=== PATIENT | female | born 1955 | race Caucasian/White ===

== ENCOUNTER → 2018-02-28 | Outpatient (CLI) | payer MEDICAID ==
[~2018-02-28] MED LIST: APAP500 PO; CIPRO500 MG PO; IBUPROFEN 800800 M1 PO; NORCO 5-325 TA1 EACH PO; ONDANSETRON HCL4 M2 PO; ULTRAM 50MG TAB50 MG PO
== END ==
LOC: M.NUC 07:12
DX: K31.84 Gastroparesis (principal); R11.2 Nausea with vomiting, unspecified; R68.81 Early satiety

== ENCOUNTER 2018-07-28 14:22 | Inpatient (IN) | payer OTHER, MEDICAID ==
[~2018-07-28] VITALS: Ht 157.5 cm; Wt 120.2 kg
[2018-07-28 14:26] VITALS: BP 104/57
[2018-07-28 14:45] LABS: ABSOLUTE BASOPHILS 0.1 thou/uL (0.0-0.2); ABSOLUTE EOSINOPHILS 0.1 thou/uL (0.0-0.7); ABSOLUTE LYMPHOCYTES 1.6 thou/uL (0.8-5.3); ABSOLUTE MONOCYTES 0.5 thou/uL (0.0-1.2); ABSOLUTE NEUTROPHILS 5.5 thou/uL (1.6-8.1); BASOPHILS 1.1 %; HEMATOCRIT 31.6 % (37.0-47.0); HEMOGLOBIN 10.5 gm/dL (12.0-15.0); LYMPHOCYTES 20.3 %; MCH 30.2 pg (26.0-34.0); MCHC 33.1 g/dL (28.0-37.0); MCV 91.3 fL (80.0-100.0); MONOCYTES 6.1 %; MPV 8.7 fl. (7.2-11.1); NUCLEATED RBCS 0 /100WBC; PLATELET COUNT* 188 thou/uL (150-400); POLYS 71.5 %; RBC 3.47 mil/uL (4.20-5.00); RDW-CV 15.4 % (10.5-14.5); WBC 7.7 thou/uL (4.0-11.0)
[2018-07-28 14:56] LABS: ANION GAP 8 mmol/L (7-16); BUN 48 mg/dL (7-18); CALCIUM 8.3 mg/dL (8.5-10.1); CHLORIDE 103 mmol/L (98-107); CO2 28 mmol/L (21-32); CREATININE 1.9 mg/dL (0.6-1.3); GLUCOSE 257 mg/dL (70-99); POTASSIUM 4.2 mmol/L (3.5-5.1); SODIUM 139 mmol/L (136-145)
[2018-07-28 14:58] LABS: APTT 34.6 Seconds (25.0-31.3); INR 1.2
[2018-07-28] MEDS ORDERED: DEMADEX20 MG PO (15:02)
[2018-07-28] MEDS ORDERED: PLAVIX 75 MG TA75 M1 PO (15:02)
[2018-07-28] MEDS ORDERED: PACERONE 200 M200 M1 PO (15:02)
[2018-07-28] MEDS ORDERED: NEURONTIN 300300 M1 PO (15:03)
[2018-07-28] MEDS ORDERED: XARELTO15 MG PO (15:03)
[2018-07-28] MEDS ORDERED: PROTONIX40 M1 PO (15:03)
[2018-07-28] MEDS ORDERED: LOPRESSOR25 PO (15:03)
[2018-07-28 15:04] LABS: ALBUMIN 2.9 g/dL (3.4-5.0); ALKALINE PHOSPHATASE 89 U/L (46-116); LIPASE 281 U/L (73-393); SGOT 24 U/L (15-37); SGPT 17 U/L (30-65); TOTAL BILIRUBIN 0.6 mg/dL (<0.1-1.0); TOTAL PROTEIN 6.9 g/dL (6.4-8.2); TROPONIN-I LEVEL <0.06 ng/mL (<0.06)
[2018-07-28] MEDS ORDERED: BENTYL 10 MG CA10 M1 PO (15:05)
[2018-07-28] MEDS ORDERED: JANUVIA 50 MG T50 M1 PO (15:05)
[2018-07-28] MEDS ORDERED: LIPITOR80 MG PO (15:05)
[2018-07-28] MEDS ORDERED: LEVEMIR SUBQ (15:06)
[2018-07-28] MEDS ORDERED: ZOLOFT25 MG PO (15:06)
[2018-07-28] MEDS ORDERED: CURCUMIN1 GM MC (15:07)
[2018-07-28 15:25] LABS: NT-PRO BRAIN NAT PEPTIDE 9481 pg/mL (<300)
[2018-07-28 18:09] VITALS: BP 101/61
[2018-07-28 18:26] VITALS: BP 92/66
--- NOTE | 2018-07-28 18:58 | NUR ---
PT ADMITTED TO ICU. VSS. AFEBRILE. RADIAL PULSES DOPPLERED. PT UP STAND BY. AT BEDSIDE. ADMISSION ASSESSMENT COMPLETED.
[2018-07-28 19:00] VITALS: BP 109/62
[2018-07-28] MEDS ORDERED: COLACE100 MG PO (20:12)
[2018-07-28 21:00] VITALS: BP 108/60
[2018-07-28 23:00] VITALS: BP 93/56
--- NOTE | 2018-07-28 23:40 | NUR ---
PT ALERT, AWAKE, AND CONVERSATIVE, REQUESTING DIET CHANGE, TOLERATING CLEAR LIQUIDS, CONSUMED X2 CUPS CHICKEN BROTH, X1 CUP SWEDISH ICE, X1 JELLO, AND X1 CAN LEMON UGASHIK SODA, CLARIFIED HOME MEDICATION LIST WITH PT, REQUESTING GABAPENTIN 300MG AND LEVIMIR 20UNITS HS PER HOME MEDICATION LIST. C/O CP 6/10 MIDSTERNAL SQUEEZING, STATES IMPROVED SINCE ADMISSION, NOTHING AGREVATES OR ALLEVIATING PAIN PER PT, CALLED DR KO, UPDATED PTS REQUEST FOR PAIN MEDICATION, HOME INSULIN, HOME DOSE GABAPENTIN FOR NUMBNESS/TINGLING BILAT HANDS AND FEET WITH HISTORY NEUROPATHY, C/O PAIN, AND PT REQUEST FOR DIET CHANGE, NEW ORDERS RECEIVED FOR GABAPENTIN 300MG PO TID PER HOME DOSE, LEVIMIR 20UNITS BID PER HOME DOSE, LOW DOSE LISPRO SLIDING SCALE AC/HS, TRAMADOL PRN PER HOME DOSE, CHANGE TO CONSISTANT CARB DIET, HYDROCODONE 5/325MG PO 1-2 Q4 HOURS PRN FOR PAIN, COMMUNICATED ORDERS WITH PATIENT, PROVIDED BOX LUNCH PER PT REQUEST WITH 100 PERCENT CONSUMPTION. HYDROCODONE 5/325MG PO 2 TABS GIVEN FOR PAIN CONTROL. WILL CONTINUE TO MONITOR.
[2018-07-29] VITALS: BP 110/67
[2018-07-29 02:00] VITALS: BP 117/67
--- NOTE | 2018-07-29 02:40 | NUR ---
PT C/O NAUSEA, ZOFRAN 4MG IVP [id number] PRN ORDERED. WILL COMMUNICATE ORDER WITH PT, INITATE ORDERED, AND CONTINUE MONITOR.
[2018-07-29 03:00] VITALS: BP 122/85
--- NOTE | 2018-07-29 03:58 | NUR ---
SPOKE DR KO VIA TELEPHONE, UPDATED PT STATUS, NEW ORDERS RECEIVED CHANGE PT FROM ICU TO TELE STATUS. WILL COMMUNICATE ORDER WITH PT.
[2018-07-29 04:00] VITALS: BP 106/67
[2018-07-29 06:00] VITALS: BP 103/55
[2018-07-29 06:52] LABS: HEMATOCRIT 33.3 % (37.0-47.0); HEMOGLOBIN 10.5 gm/dL (12.0-15.0); MCH 29.4 pg (26.0-34.0); MCHC 31.6 g/dL (28.0-37.0); MCV 93.1 fL (80.0-100.0); MPV 8.5 fl. (7.2-11.1); RBC 3.58 mil/uL (4.20-5.00); RDW-CV 15.8 % (10.5-14.5); WBC 9.8 thou/uL (4.0-11.0)
--- NOTE | 2018-07-29 07:02 | NUR ---
PROGRESSING TOWARDS GOALS, RESTING QUIETLY WITH EYES CLOSED MOST OF NOC, EASILY AROUSABLE TO VERBAL STIMULI, TOLERATING CONSISTANT CARB DIET, HYDROCODONE 5/325MG 2 TABS X1 GIVEN FOR MIDSTERNAL CP 5/10 PT REPORTS EFFECTIVE FOR PAIN MANAGEMENT, DENIES PAIN OR DISCOMFORT THIS AM. NAUSEA WITH 50CC CLEAR EMESIS X1, ZOFRAN 4MG IVP GIVEN X1 FOR NAUSEA WITH EFFECTIVE RESULTS, OXYGEN 3L PER NC, SOA WITH EXERTIONAL ACTIVITY RESOLVES WITH REST. UP TO BSC TO VOID X1 450CC JOSE CLEAR URINE. AWAKE, ALERT, CONVERSATIVE THIS AM. ASKING WHEN BREAKFAST WILL ARRIVE. B/P STABLE. USING CALL LIGHT FOR NEEDS, WANTS, AND OOB. CALL LIGHT REMAINS IN REACH.
[2018-07-29 07:19] LABS: ALBUMIN 3.1 g/dL (3.4-5.0); CALCIUM 8.5 mg/dL (8.5-10.1); CREATININE 2.1 mg/dL (0.6-1.3); MAGNESIUM 2.4 mg/dL (1.8-2.4); POTASSIUM 4.8 mmol/L (3.5-5.1); TOTAL BILIRUBIN 0.5 mg/dL (<0.1-1.0); TOTAL PROTEIN 7.2 g/dL (6.4-8.2)
[2018-07-29 08:18] LABS: CHOLESTEROL 113 mg/dL (<200); HDL CHOLESTEROL 31 mg/dL (>40); LDL CHOLESTEROL 57 mg/dL (<100); TC:HDL 3.6 Ratio (Not establshd); TRIGLYCERIDE 126 mg/dL (<150); VLDL 25 mg/dL (<40)
[2018-07-29 08:20] LABS: SERUM ASSESSMENT Clear
--- NOTE | 2018-07-29 09:51 | NUR ---
PATIENT NAUSEATED AT THIS TIME, WILL HOLD MEDS UNTIL ABLE TO TOLERATE MEDICATIONS. GETTING ECHO AT THIS TIME.
--- NOTE | 2018-07-29 11:05 | NUR ---
SPOKE WITH AT BEDSIDE, PT WAS SLEEPING. SAID PT DOES FAIR AT HOME, SHE IS ABLE TO BATHE AND DRESS HERSELF, GETS SHORT OF BREATH WITH LIMITED ACTIVITY 'SHE HAS A LEAKY HEART VALVE.' DOES THE COOKING, CLEANING, SHOPPING, ETC. PLANS ON PT RETURNING HOME AT DISCHARGE. DISCUSSED ROLE OF CASE MGT, WILL CONTINUE TO FOLLOW.
[2018-07-29 12:00] VITALS: BP 110/55
--- NOTE | 2018-07-29 16:01 | 2DMMODE ---
[place] [address] 2 D/M-MODE ECHOCARDIOGRAM Name: JHOANLITO J Room: [address] ADM IN [facility]#: [id number] Admission: 07/28/18 Attend Phys: Sheryl Montaño Discharge: Date of : 57 Date of Service: 07/29/18 1601 Report #: [id number] THIS REPORT FOR: //name// APPROVED REPORT Study performed: 07/29/2018 09:45:33 EXAM: Comprehensive 2D, Doppler, and color-flow Echocardiogram Patient Location: In-Patient Room #: 002 Status: routine BSA: 2.11 HR: 65 bpm BP: 106/56 mmHg Rhythm: NSR Other Information Study Quality: Good Indications Atrial Fibrillation Chest Pain 2D Dimensions IVSd: 12.61 (7-11mm) LVOT Diam: 19.67 (18-24mm) LVDd: 58.40 mm PWd: 12.54 (7-11mm) Ascending Ao: 26.84 (22-36mm) LVDs: 34.25 (25-40mm) Aortic Root: 27.97 mm Volumes Left Atrial Volume (Systole) LA ESV Index: 67.30 mL/m2 Aortic Valve AoV Peak Sang.: 2.09 m/s AO Peak Gr.: 17.47 mmHg LVOT Max P.54 mmHg AO Mean Gr.: 10.20 mmHg LVOT Mean P.74 mmHg LVOT Max V: 0.62 m/s AO V2 VTI: 44.56 cm LVOT Mean V: 0.40 m/s CHAIM (VTI): 0.90 cm2 LVOT V1 VTI: 13.20 cm Mitral Valve MV Mean Gr.: 4.56 mmHg MV Decel. Time: 258.44 [place] [address] 2 D/M-MODE ECHOCARDIOGRAM Name: LITO STAPLES Room: [address] IN .R.#: [id number] Admission: 07/28/18 Attend Phys: Sheryl Montaño Discharge: Date of : 57 Date of Service: 07/29/18 1601 Report #: [id number] MV PHT: 74.95 ms MVA (PHT): 2.94 cm2 TDI Medial E' Sang.: 0.09 m/s Lateral E' Sang.: 0.10 m/s Left Ventricle The left ventricle is normal size. There is normal LV segmental wall motion. Mild concentric left ventricular hypertrophy. Left ventricular systolic function is normal. LVEF is 55-60%. Transmitral Doppler flow pattern suggests restrictive physiology. Right Ventricle The right ventricle is normal size. The right ventricular systolic function is normal. Atria Left atrium is moderately dilated. Right atrium is mildly dilated. Aortic Valve Aortic valvular sclerosis. Valve motion poorly visualized. Trace aortic regurgitation. Possible mild aortic stenosis. Mitral Valve Significant mitral annular calcium patient noted. Mitral valve leaflets restricted in motion. At least mild to moderate mitral insufficiency. Jet poorly defined. No evidence of mitral valve stenosis. Tricuspid Valve The tricuspid valve is normal in structure. Trace tricuspid regurgitation. Unable to assess PA pressure. Pulmonic Valve The pulmonary valve is normal in structure. There is no pulmonic valvular regurgitation. Great Vessels The aortic root is normal in size. IVC is normal in size and collapses >50% with inspiration. Pericardium There is [place] [address] 2 D/M-MODE ECHOCARDIOGRAM Name: LITO STAPLES Room: [address] IN [facility].#: [id number] Admission: 07/28/18 Attend Phys: Sheryl Montaño Discharge: Date of : 57 Date of Service: 07/29/18 1601 Report #: [id number] <Conclusion> The left ventricle is normal size. Mild concentric left ventricular hypertrophy. Left ventricular systolic function is normal. LVEF is 55-60%. Transmitral Doppler flow pattern suggests restrictive physiology. Left atrium is moderately dilated. Right atrium is mildly dilated. Aortic valvular sclerosis. Valve motion poorly visualized. Possible mild aortic stenosis. Significant mitral annular calcium patient noted. Mitral valve leaflets restricted in motion. At least mild to moderate mitral insufficiency. Jet poorly defined. IVC is normal in size and collapses >50% with inspiration. Poor quality echo. Recommend transesophageal echo for further characterization of mitral and aortic valves. <ELECTRONICALLY SIGNED> By: Chon Btaista MD, FACC 07/29/18 1601 1601 1601 Chon Batista MD, FACC /INF
--- NOTE | 2018-07-29 16:51 | EKG ---
[place] [address] ELECTROCARDIOGRAM REPORT Name: LITO STAPLES Room: [address] ADM IN M.R.#: [id number] Admission: 07/28/18 Attend Phys: Prabha Espinosa Discharge: Date of : 57 Report #: [id number] THIS REPORT FOR: //name// [facility] ED Test Date: 2018-07-28 Test Time: 14:25:49 Pat Name: LITO STAPLES Department: Room: [facility] Gender: F Subcontract Administrator: VALERIE : 1955 Requested By: Zaira Mariano Order Number: [id number] MD: Chon Batista Measurements Intervals [place] Rate: 66 P: 78 LA: 162 QRS: 67 QRSD: 97 T: 162 QT: 443 QTc: 465 Interpretive Statements Sinus rhythm Repol abnrm suggests ischemia, anterolateral Compared to ECG 01/29/2017 11:21:02 Possible ischemia now present Short LA interval no longer present Prolonged QT interval no longer present Electronically Signed On 07-29-2018 16:50:51 CLINICAL PHARMACY TECHNICIAN by Chon Batista [email or web address] <ELECTRONICALLY SIGNED> By: Chon Batista MD, FAC 07/29/18 1650 1425 1425 Chon Batista MD, [facility] /EPI
[2018-07-29 19:09] LABS: GLYCOHEMOGLOBIN (HGB A1C) 8.2 % (4.8-5.6)
--- NOTE | 2018-07-29 19:42 | NUR ---
PT. TRANSFERED TO ROOM 222. PT A/OX4, VSS, MONITOR PLACED TRACING SR. ASSESSMENT COMPLETED WITH NO NOTED CHANGES. PT. C/O OF NAUSEA X 1 AFTER WALKING TO BATHROOM (SLOW, ASSIST X1). PO MED GIVEN WITH RELIEF. PT. ATE APPROX. 40% OF DINNER. HOURLY ROUNDING COMPLETED THROUGH OUT THE DAY FOR PT. SAFETY.
[2018-07-30] VITALS (11 sets, daily range): BP systolic 94–119; BP diastolic 47–69
--- NOTE | 2018-07-30 05:26 | NUR ---
VITALS WNL. SEE MAR. SEE CHARTING. FALL PRECAUTIONS IN PLACE. HOURLY ROUNDING FOR SAFETY.
--- NOTE | 2018-07-30 07:20 | NUR ---
CHANGE OF SHIFT BEDSIDE REPORT GIVEN PATIENT SEEN AT BEDSIDE, IN BED ASLEEP ASSUMED PATIENT CARE
[2018-07-30 10:52] LABS: CALCIUM 8.8 mg/dL (8.5-10.1); CREATININE 1.9 mg/dL (0.6-1.3); POTASSIUM 4.6 mmol/L (3.5-5.1)
[2018-07-30 10:54] LABS: INR 1.2; PROTIME 12.2 Seconds (9.20-11.50)
[2018-07-31] VITALS (12 sets, daily range): BP systolic 92–127; BP diastolic 41–76
[2018-07-31 05:07] LABS: HEMATOCRIT 27.4 % (37.0-47.0); HEMOGLOBIN 8.9 gm/dL (12.0-15.0); MCH 29.9 pg (26.0-34.0); MCHC 32.5 g/dL (28.0-37.0); MCV 91.9 fL (80.0-100.0); MPV 7.9 fl. (7.2-11.1); RBC 2.98 mil/uL (4.20-5.00); RDW-CV 15.4 % (10.5-14.5); WBC 7.4 thou/uL (4.0-11.0)
--- NOTE | 2018-07-31 05:08 | NUR ---
ASSUMED PT CARE AT 1930. ASSESSMENT COMPLETED CHARTED. C/O PAIN IN BACK, LEGS AND HEAD AND GAVE PRN TYLENOL THAT SEEMED TO HELP SOME. PT RESTING IN BED AT THIS TIME, TURNING SELF, RIGHT GROIN INSERTION SITE FOR STENT YESTERDAY HAS SOME BLOOD ON THE GAUZE BUT HAS NOT GOTTEN ANY WORSE AND NO HEMATOMA FORMED. ABLE TO MAKE NEEDS KNOWN. WILL CONTINUE TO MONITOR.
[2018-07-31 05:26] LABS: ALBUMIN 2.8 g/dL (3.4-5.0); CALCIUM 8.6 mg/dL (8.5-10.1); CREATININE 2.1 mg/dL (0.6-1.3); MAGNESIUM 2.3 mg/dL (1.8-2.4); TOTAL BILIRUBIN 0.6 mg/dL (<0.1-1.0); TOTAL PROTEIN 6.4 g/dL (6.4-8.2); TROPONIN-I LEVEL 0.1 ng/mL (<0.06)
--- NOTE | 2018-07-31 07:15 | NUR ---
CHANGE OF SHIFT BEDSIDE REPORT GIVEN PATIENT SEEN AT BEDSIDE, IN BED RESTING ASSUMED PATIENT CARE
--- NOTE | 2018-07-31 11:42 | CARD ---
[address] [address] CARDIAC CATH REPORT Name: ROBBY STAPLESUMBERTO Espinosa Room: [address] IN .R.#: [id number] Admission: 07/28/18 Attend Phys: Prabha Espinosa Discharge: Date of : 57 Report #: [id number] THIS REPORT FOR: //name// APPROVED REPORT Study performed: 07/30/2018 14:44:21 Patient Details Patient Status: In-Patient Room #: 222 The patient is a 62 year-old female Event Personnel Doug Soliz Scholarship Counselor, Gloria Duran RN Peritoneal Dialysis Registered Nurse, Muna Calabrese RTR Monitor, Dallas Wise, Aidan Machado Monitor Procedures Performed Art Access - R femoral artery* FLORINDA Place w/wo Plasty Single CIRC Hemostasis w/ Angioseal Indication Unstable angina Risk Factors Hypercholesterolemia, Hypertension Previous Procedures/Diagnoses Previous CABGPrevious PCI Admission/Lab Medications/Medications given during procedure Aspirin, Platelet Aff. Inhib., Angiomax bolus and infusion Procedure Narrative The patient was brought electively to the Cardiac Catheterization Laboratory and was prepped and draped in a sterile manner. The right femoral was infiltrated with 2% Lidocaine subcutaneous anesthesia. A Fowler 6 FR sheath was inserted into the right femoral artery. Coronary angiography was performed using coronary diagnostic catheters. The right coronary system was accessed and visualized with a Diagnostic 6Fr AR MOD catheter. The left coronary system was accessed and visualized with a Diagnostic 6Fr JL4 catheter. The left ventricle was accessed and visualized with a Diagnostic 6Fr straight pigtail catheter. Left ventricular/Aortic Valve gradient assessed via catheter pullback. Pre-demployment femoral angiogram was performed . Closure device was deployed with a 6 Fr Angioseal STS 6[place] [address] CARDIAC CATH REPORT Name: JHOANLITO J Room: [address] IN [facility].#: [id number] Admission: 07/28/18 Attend Phys: Prabha Espinosa Discharge: Date of : 57 Report #: [id number] was obtained with manual pressure following sheath removal without any complications. The patient tolerated the procedure well and there were no complications associated with the procedure. There was no hematoma. Intraoperative Conscious Sedation No Sedation was given. Fluoro Time: 13.0 minutes Dose: DAP [id number] cGycm2 97.8 mGy Contrast Type and Amount: Visipaque 170 ml Coronary Angiography The patient's coronary anatomy is left dominant. Diagnostic Cath Left Main 0% narrowing LAD 50 Percent tubular proximal LAD stenosis with 90% tubular mid LAD stenosis and reciprocal flow distally reflecting a patent SAEZ graft Circumflex 90% eccentric heavily calcified proximal circumflex stenosis Right Coronary [place]est size vessel with 90% proximal narrowing Left Ventriculography Left Ventriculography was not performed. Hemodynamics The aortic pressure is 110/54 mmHg with a mean of 74 mmHg. The left ventricular pressure is 116/13 mmHg with a mean of mmHg. The left ventricular end diastolic pressure is 28 mmHg. There was no gradient across the aortic valve upon pullback. Pullback from the left ventricle to the aorta revealed no gradient across the aortic valve. PCI Technique Lesion Anticoagulation was achieved with Angiomax. Percutaneous coronary intervention was performed on the proximal circumflex artery segment. The lesion stenosis prior to intervention was 90% with TALYA 3 flow. A 6F XB LAD 3.5 Guide Catheter was used to engage the ostium. A ProwaterFlex 180CM Interventional Guidewire was used to cross the lesion. BALLOON DILATION A Balloon catheter Mini Trek RX 1.20X12 was inserted and inflated up to 14.00atm for 8seconds. Additional Inflation: 16.00at[place] [address] CARDIAC CATH REPORT Name: LITO STAPLES Room: [address]#: [id number] Admission: 07/28/18 Attend Phys: Prabha Espinosa Discharge: Date of : 57 Report #: [id number] 9seconds. STENT DEPLOYMENT A drug-eluting stent Santiago RX Stent 2.5X15mm was inserted and inflated up to 15atm for 15seconds. Final angiography reveals 10 % stenosis with TALYA 3 flow. COMMENTS The proximal circumflex a segment was heavily calcified requiring complex wiring and extensive lesion preparation BALLOON DILATION A Balloon catheter was inserted and inflated up to 16.00atm for 9seconds. Additional Inflation: 16.00atm for 9seconds. STENT DEPLOYMENT A drug-eluting stent Soledad RX Stent 2.5X15mm was inserted and inflated up to 12.00atm for 8seconds. Additional Inflation: 15.00atm for 9seconds. PCI Technique Lesion Percutaneous coronary intervention was performed on the proximal circumflex artery segment. BALLOON DILATION A Balloon catheter NC Trek RX 2.75 X 12 was inserted and inflated up to 16.00atm for 8seconds. Additional Inflation: 16.00atm for 9seconds. Conclusion #1 significant coronary arteries characterized by the following: A 50% tubular proximal LAD stenosis with 90% tubular calcified mid LAD stenosis and reciprocal flow in the LAD beyond reflecting a patent SAEZ graft B 90% calcified stenosis of the proximal portion of the dominant circumflex C 90% narrowing of proximal portion of the small right coronary artery #2 single patent graft with a widely patent SAEZ graft [place] [address] CARDIAC CATH REPORT Name: LITO STAPLES Room: [address] IN .R.#: [id number] Admission: 07/28/18 Attend Phys: Prabha Espinosa Discharge: Date of : 57 Report #: [id number] #3 moderately severe elevation of left ventricular end-diastolic pressure at rest #4 successful percutaneous coronary intervention with deployment of drug-eluting stent at site of 90% calcified proximal circumflex stenosis with 10% residual narrowing and TALYA-3 flow the distal vessel. Recommendations Cardiac Risk Reduction Program Aggressive Medical Therapy Medications Administered Aspirin (any) Clopidogrel Diagnostic Cath Approved by: Doug Soliz MD Date/Time: 07/31/2018 11:41:12 <ELECTRONICALLY SIGNED> By: Doug Soliz MD, [facility] 07/31/18 1142 1142 [email or web address] Soliz MD, [facility] /INF
--- NOTE | 2018-07-31 16:31 | EKG ---
[place] [address] ELECTROCARDIOGRAM REPORT Name: ROBBY STAPLESUMBERTO Espinosa Room: [address] ADM IN M.R.#: [id number] Admission: 07/28/18 Attend Phys: Prabha Espinosa Discharge: Date of : 57 Report #: [id number] THIS REPORT FOR: //name// [facility] Test Date: 2018-07-30 Test Time: 14:25:15 Pat Name: LITO STAPLES Department: Room: [address] Gender: F Cigar Roller: : 1955 Requested By: Dallas Braswell Order Number: [id number] Martha MD: Doug Soliz Measurements Intervals [place] Rate: 64 P: 60 RI: 167 QRS: 59 QRSD: 90 T: 64 QT: 476 QTc: 491 Interpretive Statements Sinus rhythm Borderline low voltage, extremity leads Abnormal T, consider ischemia, anterior leads Compared to ECG 07/28/2018 14:25:49 T-wave abnormality now present Early repolarization no longer present Possible ischemia still present Electronically Signed On 07-31-2018 16:31:10 TRADING ANALYST by Doug Soliz [email or web address] <ELECTRONICALLY SIGNED> By: Doug Soliz MD, [facility] 07/31/18 1631 1425 1425 Doug Soliz MD, [facility] /EPI
--- NOTE | 2018-07-31 16:33 | EKG ---
[place] [address] ELECTROCARDIOGRAM REPORT Name: LITO TSAPLES Room: [address] ADM IN M.R.#: [id number] Admission: 07/28/18 Attend Phys: Prabha Espinosa Discharge: Date of : 57 Report #: [id number] THIS REPORT FOR: //name// [facility] Test Date: 2018-07-30 Test Time: 17:11:14 Pat Name: LITO STAPLES Department: Room: [address] Gender: F Medical Superintendent: : 1955 Requested By: Doug Soliz Order Number: [id number] Martha MD: Doug Soliz Measurements Intervals [place] Rate: 69 P: 64 [place]: 165 QRS: 78 QRSD: 96 T: 179 QT: 411 QTc: 441 Interpretive Statements Sinus rhythm Probable left atrial enlargement Borderline low voltage, extremity leads Abnrm T, consider ischemia, anterolateral lds Compared to ECG 07/28/2018 14:25:49 Early repolarization no longer present Possible ischemia still present Electronically Signed On 07-31-2018 16:33:33 COMPUTER PROCESSING SCHEDULER by Doug Soliz [email or web address] <ELECTRONICALLY SIGNED> By: Doug Soliz MD, FAC 07/31/18 1633 1711 1711 Doug Soliz MD, [facility] /EPI
--- NOTE | 2018-07-31 16:39 | EKG ---
[place] [address] ELECTROCARDIOGRAM REPORT Name: LITO STAPLES Room: [address] ADM IN M.R.#: [id number] Admission: 07/28/18 Attend Phys: Prabha Espinosa Discharge: Date of : 57 Report #: [id number] THIS REPORT FOR: //name// [facility] Test Date: 2018-07-31 Test Time: 03:54:00 Pat Name: LITO STAPLES Department: Room: [address] Gender: F Circus Roustabout: AUSTYN : 1955 Requested By: Doug Soliz Order Number: [id number] Martha MD: Doug Soliz Measurements Intervals [place] Rate: 67 P: 66 AL: 159 QRS: 71 QRSD: 98 T: 107 QT: 462 QTc: 488 Interpretive Statements Sinus rhythm Borderline low voltage, extremity leads Abnormal R-wave progression, early transition Nonspecific T abnrm, anterolateral leads Borderline prolonged QT interval Compared to ECG 07/28/2018 14:25:49 Early repolarization no longer present Possible ischemia no longer present Electronically Signed On 07-31-2018 16:38:59 EMOTIONALLY IMPAIRED TEACHER by Doug Soliz [email or web address] <ELECTRONICALLY SIGNED> By: Doug Soliz MD, [facility] 07/31/18 1638 0354 0354 Doug Soliz MD, [facility] /EPI
--- NOTE | 2018-07-31 17:54 | TEE ---
[place] [address] TRANSESOPHAGEAL ECHOCARDIOGRAM Name: ROBBY STAPLESUMBERTO Espinosa Room: [address] IN [facility]#: [id number] Admission: 07/28/18 Attend Phys: Sheryl Montaño Discharge: Date of : 57 Date of Service: 07/31/18 1753 Report #: [id number] THIS REPORT FOR: //name// APPROVED REPORT Study performed: 07/31/2018 16:56:37 EXAM: Transesophageal Echocardiogram Patient Location: In-Patient Room #: [facility] Status: routine BSA: 2.13 HR: 70 bpm BP: 81/54 mmHg Rhythm: NSR Other Information Study Quality: Good Indications Mitral Valve Disease Echo Enhancing Agent Indication: Rule out Shunt Agent(s) / Amount(s) Used: Agitated Saline 10 cc Mitral Valve MV Mean Gr.: 5.83 mmHg Procedure After obtaining informed consent, patient underwent transesophageal echo in the [facility] [employer]. Type of Sedation : Conscious Sedation Sedation start time: 1719 Case end Time: 1734 Sedation was achieved intravenously with: Versed (2) Fentanyl (50) Transesophageal probe was inserted and advanced into esophagus without difficulty by Chon Batista MD, FACC. Echo enhancement indication: R/O Septal defect. Echo enhancement agent administered: Agitated Saline The MYNOR was performed without complications. Throughout the procedure, the blood pressure, pulse oximetry, cardiac rhythm, and rate were monitored. The patient tolerated the procedure without adverse effects. Recovery from conscious sedation was uneventful and vital signs were [facility] [address] [place] [address] TRANSESOPHAGEAL ECHOCARDIOGRAM Name: LITO STAPLES Room: [address] IN [facility].#: [id number] Admission: 07/28/18 Attend Phys: Sheryl Montaño Discharge: Date of : 57 Date of Service: 07/31/18 1753 Report #: [id number] stable. Left Ventricle The left ventricle is normal size. There is normal LV segmental wall motion. Mild concentric left ventricular hypertrophy. Left ventricular systolic function is normal. LVEF is 55-60%. Right Ventricle The right ventricle is normal size. The right ventricular systolic function is normal. Atria Left atrium is moderately dilated. Atrial appendage surgically absent. Interatrial septum is intact without evidence of ASD or PFO. Right atrium is mildly dilated. Aortic Valve Mild aortic valve sclerosis. No aortic regurgitation is present. There is no aortic valvular stenosis. Mitral Valve Mild to Moderate mitral annular calcification. Severe mitral regurgitation. No evidence of mitral valve stenosis. Tricuspid Valve The tricuspid valve is normal in structure. There is no tricuspid valve regurgitation noted. Pulmonic Valve Pulmonic valve is not well visualized. There is no pulmonic valvular regurgitation. Great Vessels The aortic root is normal in size. Pericardium There is no pericardial effusion. <Conclusion> The left ventricle is normal size. Mild concentric left ventricular hypertrophy. Left ventricular systolic function is normal. LVEF is 55-60%. Interatrial septum is intact without evidence of ASD or PFO. Left atrium is moderately dilated. Atrial [place] [address] TRANSESOPHAGEAL ECHOCARDIOGRAM Name: LITO STAPLES Francisca Room: [address] IN [facility]#: [id number] Admission: 07/28/18 Attend Phys: Sheryl Montaño Discharge: Date of : 57 Date of Service: 07/31/181752 Report #: [id number] Right atrium is mildly dilated. Mild aortic valve sclerosis. Mild aortic valve sclerosis. There is no aortic valvular stenosis. Mild to Moderate mitral annular calcification. Severe mitral regurgitation. <ELECTRONICALLY SIGNED> By: Chon Batista MD, FACC 07/31/181752 52 52 Chon Batista MD, FACC /INF
[2018-08-01] VITALS (7 sets, daily range): BP systolic 90–125; BP diastolic 36–60
--- NOTE | 2018-08-01 04:09 | NUR ---
ASSUMED PT CARE AT 1930. ASSESSMENT COMPLETED CHARTED. PT HAS BEEN SLEEPY ALL SHIFT. C/O PAIN RECENTLY OF BODY ACHES AND GAVE PRN TYLENOL. WILL CONTINUE TO MONITOR.
--- NOTE | 2018-08-01 12:11 | NUR ---
PT A/O X'S 4. VSS. AFEBRILE. NO C/O PAIN. DURING METAL BONDING CRIB ATTENDANT PT REPORTED HAVING AN EPISODE OF FEELING SOA AND DIAPHORETIC. PT DENIES THESE SYMPTOMS AT THIS TIME. CARDIOLOGY NOTIFIED OF SYMPTOMS AT NIGHT AND REPORTED THEY ARE GOING TO MAKE MEDICATION CHANGED. PT DENIES SOA THIS SHIFT. PT C/O OF BEING COLD. MEDICATIONS ADMININSTERED PER SEP. WILL CONTINUE PLAN OF CARE.
[2018-08-01] MEDS ORDERED: ASPIR 8181 M1 PO (15:08)
--- NOTE | 2018-08-01 15:49 | NUR ---
CALLED CARDIOLOGY. PT TO GO HOME ON PLAVIX, ASPIRIN AND XARELTO.
--- NOTE | 2018-08-01 16:57 | NUR ---
TELEPHONE SERVICE ADVISER INFORMED THAT THE PATIENT WILL NEED HOME O2 AT D/C, BUT WILL NEED MEDICAID PRIOR AUTH. D/C [employer] SPOKE TO [place] MEDICAID PRIOR AUTH LINE TO INFORM OF NEED TO ACQUIRE AUTH. HOME OXYGEN PRIOR AUTH WAS APPROVED. D/C [employer] SPOKE TO JYOTHI WITH [employer] TO INFORM OF THE DME REFERRAL FOR HOME OXYGEN, AND FAXED THE PATIENT'S FACESHEET, H&P, AND DME ORDER. [facility] TO DELIVER OXYGEN TANK HERE TO THE HOSPITAL, AND TO DELIVER OXYGEN CONCENTRATOR AND SUPPLIES TO THE PATIENT'S HOME. PATIENT AND RN IN-CHARGE OF PATIENT INFORMED OF ALL OF THE ABOVE INFO. CM WILL REMAIN AVIALABLE TO ASSIST AND FOLLOW NEEDED.
--- NOTE | 2018-08-01 18:29 | NUR ---
RECEIVED DISCHARGE ORDERS. IV AND CARDIAC DC'D. OXYGEN DELIEVERED TO PT IN HOSPITAL. ALL BELONGINGS PACKED UP AND LEFT WITH PT.
== END 2018-08-01 18:15 | disposition home or self-care (01) | DRG 246 ==
LOC: M.ERS 14:22 → M.TBA-ER 17:07 → M.ICU 17:07 → M.2W 17:07 → M.ICU 18:27 → M.2W 07-29 16:01
PROVIDERS: Internal Medicine; Nurse Practitioner Family; Personal Emergency Response Attendant; ADMIT Internal Medicine
DX: I25.110 Atherosclerotic heart disease of native coronary artery with unstable angina pectoris (principal); J96.01 Acute respiratory failure with hypoxia; I50.33 Acute on chronic diastolic (congestive) heart failure; N18.4 Chronic kidney disease, stage 4 (severe); N17.9 Acute kidney failure, unspecified; Z68.42 Body mass index [BMI] 45.0-49.9, adult; I13.0 Hypertensive heart and chronic kidney disease with heart failure and stage 1 through stage 4 chronic kidney disease, or unspecified chronic kidney disease; Z88.6 Allergy status to analgesic agent; Z88.0 Allergy status to penicillin; I95.9 Hypotension, unspecified; I48.91 Unspecified atrial fibrillation; K21.9 Gastro-esophageal reflux disease without esophagitis; F32.9 Major depressive disorder, single episode, unspecified; E11.22 Type 2 diabetes mellitus with diabetic chronic kidney disease; E66.01 Morbid (severe) obesity due to excess calories; I34.0 Nonrheumatic mitral (valve) insufficiency; I25.5 Ischemic cardiomyopathy; I48.2 Chronic atrial fibrillation; Z95.5 Presence of coronary angioplasty implant and graft; Z90.49 Acquired absence of other specified parts of digestive tract; Z87.891 Personal history of nicotine dependence

== ENCOUNTER 2019-01-27 16:35 | Emergency (ER) | payer OTHER, MEDICAID ==
[~2019-01-27] VITALS: Ht 157.5 cm; Wt 101.2 kg
[~2019-01-27 16:35] MED LIST changes: +ASPIR 8181 M1 PO; +BENTYL 10 MG CA10 M1 PO; +COLACE100 MG PO; +CURCUMIN1 GM MC; +DEMADEX20 MG PO; +JANUVIA 50 MG T50 M1 PO; +LEVEMIR SUBQ; +LIPITOR80 MG PO; +LOPRESSOR25 PO; +NEURONTIN 300300 M1 PO; +PACERONE 200 M200 M1 PO; +PLAVIX 75 MG TA75 M1 PO; +PROTONIX40 M1 PO; +XARELTO15 MG PO; +ZOLOFT25 MG PO
[2019-01-27] MEDS ORDERED: NORCO 5-325 TA1 EAC1 PO (18:53)
[2019-01-27 19:00] VITALS: BP 118/72
== END 2019-01-27 19:00 | disposition home or self-care (01) ==
LOC: M.ERS 16:35
DX: S92.191A Other fracture of right talus, initial encounter for closed fracture (principal); S92.511A Displaced fracture of proximal phalanx of right lesser toe(s), initial encounter for closed fracture; K21.9 Gastro-esophageal reflux disease without esophagitis; I48.91 Unspecified atrial fibrillation; I25.10 Atherosclerotic heart disease of native coronary artery without angina pectoris; I12.9 Hypertensive chronic kidney disease with stage 1 through stage 4 chronic kidney disease, or unspecified chronic kidney disease; E11.22 Type 2 diabetes mellitus with diabetic chronic kidney disease; N18.4 Chronic kidney disease, stage 4 (severe); Z88.0 Allergy status to penicillin; Z88.5 Allergy status to narcotic agent; Z95.1 Presence of aortocoronary bypass graft; Z95.5 Presence of coronary angioplasty implant and graft; Z79.4 Long term (current) use of insulin; W01.0XXA Fall on same level from slipping, tripping and stumbling without subsequent striking against object, initial encounter; Y93.89 Activity, other specified; Y92.89 Other specified places as the place of occurrence of the external cause; Y99.8 Other external cause status

== ENCOUNTER 2019-03-11 15:12 | Emergency (ER) | payer OTHER, MEDICAID ==
[~2019-03-11] VITALS: Ht 160 cm; Wt 103.9 kg
[~2019-03-11 15:12] MED LIST changes: +NORCO 5-325 TA1 EAC1 PO
[2019-03-11] MEDS ORDERED: LANOXIN 0.25M0.25 M1 PO (15:23)
[2019-03-11] MEDS ORDERED: COUMADIN 4 MG TA4 M1 PO (15:24)
[2019-03-11 16:04] LABS: INR 3.2; PROTIME 31.2 Seconds (9.20-11.50)
[2019-03-11] MEDS ORDERED: NORCO 5-325 TA1 EAC1 PO (16:28)
[2019-03-11 16:41] VITALS: BP 124/65
== END 2019-03-11 16:42 | disposition home or self-care (01) ==
LOC: M.ERS 15:12
PROVIDERS: Physician Assistant
DX: S90.32XA Contusion of left foot, initial encounter (principal); I25.10 Atherosclerotic heart disease of native coronary artery without angina pectoris; K21.9 Gastro-esophageal reflux disease without esophagitis; I48.91 Unspecified atrial fibrillation; I12.9 Hypertensive chronic kidney disease with stage 1 through stage 4 chronic kidney disease, or unspecified chronic kidney disease; E11.22 Type 2 diabetes mellitus with diabetic chronic kidney disease; N18.4 Chronic kidney disease, stage 4 (severe); Z95.1 Presence of aortocoronary bypass graft; Z79.4 Long term (current) use of insulin; Z95.5 Presence of coronary angioplasty implant and graft; Z88.8 Allergy status to other drugs, medicaments and biological substances; W22.8XXA Striking against or struck by other objects, initial encounter; Y93.89 Activity, other specified; Y92.89 Other specified places as the place of occurrence of the external cause; Y99.8 Other external cause status

== ENCOUNTER 2019-03-31 18:24 | Inpatient (IN) | payer OTHER, MEDICAID ==
[~2019-03-31] VITALS: Ht 154.9 cm; Wt 111.1 kg
[~2019-03-31 18:24] MED LIST changes: -APAP500 PO; +COUMADIN 4 MG TA4 M1 PO; +LANOXIN 0.25M0.25 M1 PO; +TYLENOL EXTRA500 MG PO
[2019-03-31 18:29] VITALS: BP 114/64
[2019-03-31 19:09] LABS: ABSOLUTE BASOPHILS 0.1 thou/uL (0.0-0.2); ABSOLUTE EOSINOPHILS 0.1 thou/uL (0.0-0.7); ABSOLUTE LYMPHOCYTES 1.7 thou/uL (0.8-5.3); ABSOLUTE MONOCYTES 0.4 thou/uL (0.0-1.2); ABSOLUTE NEUTROPHILS 4.2 thou/uL (1.6-8.1); EOSINOPHILS 1.7 %; HEMATOCRIT 37.5 % (37.0-47.0); HEMOGLOBIN 12.3 gm/dL (12.0-15.0); LYMPHOCYTES 26.3 %; MCH 29.7 pg (26.0-34.0); MCHC 32.9 g/dL (28.0-37.0); MCV 90.5 fL (80.0-100.0); MONOCYTES 6.7 %; NUCLEATED RBCS 0 /100WBC; PLATELET COUNT* 196 thou/uL (150-400); POLYS 64.3 %; RBC 4.14 mil/uL (4.20-5.00); WBC 6.5 thou/uL (4.0-11.0)
[2019-03-31 19:20] LABS: INR 3.2; PROTIME 31.2 Seconds (9.20-11.50)
[2019-03-31 19:21] LABS: ANION GAP 13 mmol/L (7-16); BUN 33 mg/dL (7-18); CALCIUM 8.5 mg/dL (8.5-10.1); CHLORIDE 102 mmol/L (98-107); CO2 24 mmol/L (21-32); CREATININE 1.9 mg/dL (0.6-1.3); GLUCOSE 329 mg/dL (70-99); POTASSIUM 3.9 mmol/L (3.5-5.1); SODIUM 139 mmol/L (136-145)
[2019-03-31 19:27] LABS: ALBUMIN 3.4 g/dL (3.4-5.0); ALKALINE PHOSPHATASE 96 U/L (46-116); LIPASE 298 U/L (73-393); NT-PRO BRAIN NAT PEPTIDE 1433 pg/mL (<300); SGOT 31 U/L (15-37); SGPT 40 U/L (30-65); TOTAL BILIRUBIN 0.5 mg/dL (<0.1-1.0); TROPONIN-I LEVEL <0.06 ng/mL (<0.06)
[2019-03-31 22:11] VITALS: BP 117/61
[2019-03-31 22:20] VITALS: BP 120/67
[2019-03-31] MEDS ORDERED: BENADRYL25 MG PO (23:01)
[2019-03-31] MEDS ORDERED: VITAMIN D1000 UNI1 PO (23:02)
[2019-03-31] MEDS ORDERED: LAXATIVE DIETA500 MG PO (23:02)
[2019-03-31] MEDS ORDERED: DEMADEX20 MG PO (23:06)
[2019-04-01 04:00] VITALS: BP 113/48
[2019-04-01 11:26] VITALS: BP 120/56
[2019-04-01 15:30] VITALS: BP 121/51
[2019-04-01 20:00] VITALS: BP 147/60
[2019-04-02] VITALS: BP 113/41
[2019-04-02 04:00] VITALS: BP 145/52
[2019-04-02 04:41] LABS: ABSOLUTE BASOPHILS 0.1 thou/uL (0.0-0.2); ABSOLUTE EOSINOPHILS 0.2 thou/uL (0.0-0.7); ABSOLUTE MONOCYTES 0.5 thou/uL (0.0-1.2); ABSOLUTE NEUTROPHILS 4.6 thou/uL (1.6-8.1); BASOPHILS 0.9 %; EOSINOPHILS 2.2 %; HEMOGLOBIN 11.9 gm/dL (12.0-15.0); LYMPHOCYTES 27.8 %; MCH 29.4 pg (26.0-34.0); MCHC 32.1 g/dL (28.0-37.0); MCV 91.6 fL (80.0-100.0); MONOCYTES 6.8 %; MPV 8.4 fl. (7.2-11.1); NUCLEATED RBCS 0 /100WBC; PLATELET COUNT* 189 thou/uL (150-400); POLYS 62.3 %; RBC 4.03 mil/uL (4.20-5.00); RDW-CV 14.8 % (10.5-14.5); WBC 7.3 thou/uL (4.0-11.0)
[2019-04-02 04:54] LABS: CALCIUM 8.3 mg/dL (8.5-10.1); CREATININE 2.2 mg/dL (0.6-1.3); POTASSIUM 4.9 mmol/L (3.5-5.1)
[2019-04-02 05:07] LABS: INR 2.3; PROTIME 23.3 Seconds (9.20-11.50)
[2019-04-02 08:30] VITALS: BP 134/56
[2019-04-02 11:48] VITALS: BP 149/47
--- NOTE | 2019-04-02 12:41 | CON ---
[address] [address] CONSULTATION Name: PATTYANDRAELITO J Room: [place] [address] ADM IN M.R.#: [id number] Admission: 03/31/19 Attend Phys: Dallas Braswell MD Discharge: Date of : 57 Report #: [id number] THIS REPORT FOR: //name// CC: FAM unknown Dallas Braswell DATE OF SERVICE: 04/01/2019 HISTORY OF PRESENT ILLNESS: The patient is a very pleasant 63-year-old right-hand dominant female who is complaining, Orthopedics has seen her for her left upper extremity potential pain and discomfort. The patient was admitted through the institution on 03/31/2019, she was described as having some tightness in her chest, pain in the arm and has been given a good cardiac workup, still having not completed today. She recently had a mechanical valve placed at [facility], is on Coumadin therapy for that she tells me. The patient otherwise has never had this before, this just started yesterday. The patient denies any major numbness or tingling, but does get a little burning in the left arm at times. PAST MEDICAL HISTORY: She does have the past medical history of diabetes, hypertension, sciatica. She has had coronary artery disease. Of course, she has CKD 4, GERD, and AFib. PAST SURGICAL HISTORY: She does have history of CABG, mechanical aortic valve. She has cardiac stents placed in the history of 2016. She has had oophorectomy. She has had a cholecystectomy, myringotomies and multiple ankle surgeries. CURRENT MEDICATIONS: Hydrocodone for her pain. She is on Plavix, amiodarone, pantoprazole, atorvastatin, sertraline, tramadol, sitagliptin, which is Januvia. She is on acetaminophen, gabapentin, insulin, digoxin, warfarin. ALLERGIES: CODEINE AND PENICILLIN IS LISTED. FAMILY HISTORY: She does have no gross family history. SOCIAL HISTORY: She has no major alcohol or tobacco use history otherwise. REVIEW OF SYSTEMS: MUSCULOSKELETAL: Has had discomfort, it is improving in the left upper extremity per and herself and she does has a little burning in the left arm region. CONSTITUTIONAL: Otherwise, denies any fevers or chills. No eye pain. RESPIRATORY: She has no cough or congestion. Denies any shortness of breath. Currently, no current chest pain. ABDOMEN: [place] [address] CONSULTATION Name: LITO STAPLES Room: [address] IN [facility]#: [id number] Admission: 03/31/19 Attend Phys: Dallas Braswell MD Discharge: Date of : 57 Report #: [id number] PHYSICAL EXAMINATION: VITAL SIGNS: Overall vitals show BP is 114/64, pulse 53, respirations 20. GENERAL: The patient's clinical presentation, she is alert and cooperative, appropriate affect and judgment. HEENT: Normocephalic. Sclerae are white. Mucous membranes moist. Trachea is midline. She has O2 supplementation nasal cannula. Does demonstrate to be very conservative, has normal talk to me. She has no facial droops. She has no audible wheezes. EXTREMITIES: Demonstrate to show upper extremities ____. Full motion is noted to both shoulders, elbows and wrists. She has little soreness moving her left wrist region, but not the shoulder. The upper extremity shows soft compartments in the upper arm and the lower arm on both sides. The patient has good pulses at the wrists bilaterally. Her sensation is intact to the hand bilaterally. I see no erythema anywhere in the left arm which is the painful arm. IMAGING: Her radiograph of the left shoulder does demonstrate to show that she has some AC joint arthropathy if anything early osteoarthritis of glenohumeral joint. IMPRESSION: Left shoulder pain with underlying early acromioclavicular joint arthropathy, left arm pain, etiology undetermined, but could be a potential either cardiac history radiating to the left arm pain and/or remote chance of a deep venous thrombosis, although all compartments are totally soft in that. In any event, she has never had this before. I think this hopefully is improving. We will continue to do so, so Orthopedics will just be on standby, would not do anything else for her and I discussed that with them and they agree. It is my pleasure seeing and taking care of her today. <ELECTRONICALLY SIGNED> By: Kunal Carr DO 04/02/19 1241 1301 0211Cwilson Carr DO /nt
[2019-04-02 15:52] VITALS: BP 132/51
--- NOTE | 2019-04-02 17:27 | CARDNUC ---
[place] [address] CARDIAC NUCLEAR IMAGING REPORT Name: LITO STAPLES Room: [address] IN [facility]#: [id number] Admission: 03/31/19 Attend Phys: Dallas Braswell, Discharge: Date of : 57 Date of Service: 04/02/19 1726 Report #: [id number] THIS REPORT FOR: //name// APPROVED REPORT Study performed: 04/01/2019 13:47:23 Exam: Nuclear Stress Test Indication: Chest pain Patient Location: In-Patient Room #: 233 Stress Tech: Cathryn Moreno Stress Nurse: Dorothy Escalante RN NM Tech:TERESA Cerna Ht: 5 ft 0 in Wt: 236 lbs BSA: 2.00 m2 BMI: 46.08 Medical History Medical History: cad, hyperllipidemia, hypertension, diabetes Medications: amiodarone, digoxin, warfarin, torsemide, atorvastatin, clopidogrel Allergies: penicillin, codeine Cardiac Risk Factors: age, hyperlipidemia, hypertension, dibetes, family hx Previous Cardiac Procedures: cabg, pci, valve surgery Exercise History: Sedentary Stress Test Details Stress Test: Pharmacologic stress testing performed using 0.4 mg of regadenoson per 5 mL given IV over 10 seconds. Reason for pharmacologic stress test: physical limitation. HR Resting HR: 56 bpm Max Heart Rate (APMHR): 158 bpm Max HR Achieved: 66 bpm Target HR (85% APMHR): 134 bpm % of APMHR: 41 Recovery HR: 65 bpm HR response to stress: Normal HR response to stress BP Resting BP: 102/66 mmHg Max BP: 191/64 [place] [address] CARDIAC NUCLEAR IMAGING REPORT Name: LITO STAPLES Francisca Room: [address] IN [facility]#: [id number] Admission: 03/31/19 Attend Phys: Dallas Braswell, Discharge: Date of : 57 Date of Service: 04/02/19 1726 Report #: [id number] BP response to stress: Abnormal hypertensive response to stress. ECG Resting ECG: Sinus Rhythm, nonspecific ST-T abnormalities Stress ECG: Sinus Rhythm, nonspecific ST-T abnormalities ST Change: Downsloping ST depression Maximum ST Deviation: 0.5 mm Arrhythmia: None Recovery ECG: Sinus Rhythm, nonspecific ST-T abnormalities Recovery ST Change: None Recovery Arrhythmia: None Clinical Reason for Termination: Completed protocol Stress Symptoms: None Exercise duration: 0 min sec Exercise capacity: 1 METs Nurse Comments pt is extremely weak from multiple surgeries and illnesses. unable to stand unattended Stress ECG Conclusion Normal hemodynamic response to pharmacologic stress. Clinical: Non-ischemic Non-diagnostic ekg stress due to failure to attain target HR. NM EXAM: Myocardial Perfusion REST/STRESS Imaging Protocol: Stress Tc-99m/Rest Tc-99m 2 days Resting Data Rest SPECT myocardial perfusion imaging was performed in supine position 30 minutes following the intravenous injection of 34.0 mCi of Tc-99m Sestamibi. Time of rest injection: 09:45 Date: 04/02/2019 The images were gated to evaluate regional wall motion and calculate left ventricular ejection fraction. Administration Route: IV Administration Site: Right AC Pharmacologic Stress Pharmacologic stress test was performed by injecting Regadenoson 0.4 mg IV push followed by the intravenous injection of 30.2 mCi of Tc-99[place] [address] CARDIAC NUCLEAR IMAGING REPORT Name: LITO STAPLES Room: [address] IN [facility].#: [id number] Admission: 03/31/19 Attend Phys: Dallas Braswell, Discharge: Date of : 57 Date of Service: 04/02/19 1726 Report #: [id number] Time of stress injection: 13:50 Date: 04/01/2019 Administration Route: IV Administration Site: Right AC Heart Rate at time of stress injection: 66 bpm. Gated Stress SPECT was performed 40 minutes after stress injection. The images were gated to evaluate regional wall motion and calculate left ventricular ejection fraction. Study Quality Study: Good Artifact: Mild Diaphragmatic artifact Lung Uptake: Normal Study Data At rest, the left ventricular ejection fraction was 51%.. Post stress, the left ventricular ejection was 63%.. TID = 1.12. Perfusion The resting study demonstrated a small mild lateral defect as well as a small mild inferior defect. The post stress images demonstrated a moderate in size and moderate in severity lateral defect as well as a moderate in size moderate in severity inferior defect. Assess of bowel uptake was present. These images demonstrate a small moderate in severity lateral defect and a small moderate in severity inferior defect these reversible defects are compatible with myocardial ischemia. There appears to be at least a small moderate area of lateral ischemia and a small mild area of inferior ischemia. Images were reviewed using [employer]. Wall Motion Normal left ventricular wall motion. Nuclear Conclusion ECG Findings: non-diagnostic Clinical Findings: negative for ischemia Nuclear Findings: positive for ischemia Exercise Capacity: not assessed Left Ventricular Function: normal Risk Study: moderate The Lexiscan Cardiolite stress test demonstrates a small area of moderate lateral ischemia and a small area of mild inferior ischemia. Overall this is a moderate risk study. <Conclusion> [place] [address] CARDIAC NUCLEAR IMAGING REPORT Name: LITO STAPLES Room: [address] IN [facility].#: [id number] Admission: 03/31/19 Attend Phys: Dallas Braswell, Discharge: Date of : 57 Date of Service: 04/02/19 1726 Report #: [id number] Normal hemodynamic response to pharmacologic stress. Clinical: Non-ischemic Non-diagnostic ekg stress due to failure to attain target HR. <ELECTRONICALLY SIGNED> By: Roxanne Bowie MD, FACC 04/02/191725 25 25 Roxanne Bowie MD, FAC /INF
--- NOTE | 2019-04-02 17:53 | EKG ---
[place] [address] ELECTROCARDIOGRAM REPORT Name: LITO STAPLES Room: [place] [address] ADM IN .R.#: [id number] Admission: 03/31/19 Attend Phys: Dallas Braswell MD Discharge: Date of : 57 Report #: [id number] THIS REPORT FOR: //name// 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1955 Requested By: Nehemiah Luna Order Number: [id number] MD: Shahid Bowie Measurements Intervals [place] Rate: 55 P: 59 SD: 239 QRS: 36 QRSD: 94 T: 130 QT: 458 QTc: 438 Interpretive Statements Sinus rhythm Prolonged SD interval Repol abnrm suggests ischemia, anterolateral Minimal ST elevation, inferior leads Compared to ECG 07/31/2018 03:54:00 First degree AV block now present Early repolarization now present Possible ischemia now present ST (T wave) deviation now present Electronically Signed On 04-02-2019 17:52:51 CDT by Shahid Bowie [email or web address] <ELECTRONICALLY SIGNED> By: Roxanne Bowie MD, [facility] 04/02/191751 31 31 Roxanne Bowie MD, FAC /EPI
--- NOTE | 2019-04-02 17:54 | EKG ---
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: [place] : 1955 Requested By: Ruth Prescott Order Number: [id number] MD: Shahid Bowie Measurements Intervals [place] Rate: 58 P: 43 MT: 158 QRS: 48 QRSD: 89 T: 131 QT: 521 QTc: 512 Interpretive Statements Sinus rhythm Abnrm T, consider ischemia, anterolateral lds Prolonged QT interval Compared to ECG 07/31/2018 03:54:00 Possible ischemia now present Electronically Signed On 04-02-2019 17:53:54 CDT by Shahid Bowie [email or web address] <ELECTRONICALLY SIGNED> By: Roxanne Bowie MD, [facility] 04/02/19 1753 38 38 Roxanne Bowie MD, [facility] /EPI
[2019-04-02 20:00] VITALS: BP 136/47
[2019-04-03] VITALS: BP 124/40
[2019-04-03 04:56] LABS: INR 1.8; PROTIME 18.1 Seconds (9.20-11.50)
[2019-04-03 08:20] VITALS: BP 151/72
[2019-04-03 10:36] VITALS: BP 151/72
== END 2019-04-03 13:07 | disposition home or self-care (01) | DRG 554 ==
LOC: M.ERS 18:24 → M.TBA-ER 21:28 → M.2W 21:28
PROVIDERS: Emergency Medicine; Internal Medicine; ADMIT Internal Medicine
DX: M12.812 Other specific arthropathies, not elsewhere classified, left shoulder (principal); N18.4 Chronic kidney disease, stage 4 (severe); Z68.42 Body mass index [BMI] 45.0-49.9, adult; F32.9 Major depressive disorder, single episode, unspecified; I12.9 Hypertensive chronic kidney disease with stage 1 through stage 4 chronic kidney disease, or unspecified chronic kidney disease; E11.22 Type 2 diabetes mellitus with diabetic chronic kidney disease; E66.01 Morbid (severe) obesity due to excess calories; G89.29 Other chronic pain; K21.9 Gastro-esophageal reflux disease without esophagitis; I48.91 Unspecified atrial fibrillation; I25.10 Atherosclerotic heart disease of native coronary artery without angina pectoris; E78.5 Hyperlipidemia, unspecified; Z87.891 Personal history of nicotine dependence; Z90.49 Acquired absence of other specified parts of digestive tract; Z95.5 Presence of coronary angioplasty implant and graft; Z95.1 Presence of aortocoronary bypass graft; Z88.6 Allergy status to analgesic agent; Z88.0 Allergy status to penicillin

== ENCOUNTER 2019-05-05 02:21 | Emergency (ER) | payer MEDICAID ==
[~2019-05-05] VITALS: Ht 157.5 cm; Wt 105.3 kg
[~2019-05-05 02:21] MED LIST changes: +BENADRYL25 MG PO; +LAXATIVE DIETA500 MG PO; +VITAMIN D1000 UNI1 PO
[2019-05-05 03:01] LABS: ABSOLUTE BASOPHILS 0.1 thou/uL (0.0-0.2); ABSOLUTE EOSINOPHILS 0.1 thou/uL (0.0-0.7); ABSOLUTE LYMPHOCYTES 4.8 thou/uL (0.8-5.3); ABSOLUTE MONOCYTES 0.9 thou/uL (0.0-1.2); ABSOLUTE NEUTROPHILS 5.9 thou/uL (1.6-8.1); BASOPHILS 0.7 %; EOSINOPHILS 0.9 %; HEMATOCRIT 35.3 % (37.0-47.0); HEMOGLOBIN 11.6 gm/dL (12.0-15.0); LYMPHOCYTES 40.7 %; MCH 29.6 pg (26.0-34.0); MCHC 32.8 g/dL (28.0-37.0); MCV 90.1 fL (80.0-100.0); MONOCYTES 7.9 %; MPV 8.5 fl. (7.2-11.1); NUCLEATED RBCS 0 /100WBC; PLATELET COUNT* 240 thou/uL (150-400); POLYS 49.8 %; RBC 3.92 mil/uL (4.20-5.00); WBC 11.8 thou/uL (4.0-11.0)
[2019-05-05 03:17] LABS: CALCIUM 8.5 mg/dL (8.5-10.1); CREATININE 2.1 mg/dL (0.6-1.3); POTASSIUM 3.9 mmol/L (3.5-5.1)
[2019-05-05 03:28] LABS: ALBUMIN 3.6 g/dL (3.4-5.0); TOTAL BILIRUBIN 0.6 mg/dL (<0.1-1.0); TOTAL PROTEIN 6.3 g/dL (6.4-8.2)
[2019-05-05 03:55] LABS: INR 2.9; PROTIME 28.8 Seconds (9.20-11.50)
[2019-05-05 04:43] LABS: URINE BILIRUBIN NEGATIVE (Negative); URINE BLOOD TRACE (Negative); URINE CLARITY CLEAR; URINE COLOR YELLOW; URINE GLUCOSE-RANDOM 3+ (Negative); URINE KETONES NEGATIVE (Negative); URINE LEUKOCYTES-REFLEX 1+ (Negative); URINE NITRITE-REFLEX NEGATIVE (Negative); URINE PROTEIN NEGATIVE (Negative); URINE SPECIFIC GRAVITY <= 1.005 (1.005-1.030); URINE UROBILINOGEN 0.2 E.U./dl (0.2-1.0)
[2019-05-05 05:11] LABS: CASTS None Seen /LPF (None Seen); CRYSTALS None Seen /LPF (None Seen); MUCUS 0-3 Light strn/LPF (None Seen); SQUAMOUS 0-3 Few /LPF (0-3); URINE RBC 0-2 Rare /HPF (0-2); URINE WBC-REFLEX 6-15 Few /HPF (0-5)
[2019-05-05] MEDS ORDERED: KEFLEX500 M2 PO (06:38)
[2019-05-05 06:52] VITALS: BP 151/58
--- NOTE | 2019-05-05 13:35 | EKG ---
[place] [address] ELECTROCARDIOGRAM REPORT Name: LITO STAPLES Room: [facility]#: [id number] Admission: 05/05/19 Attend Phys: Discharge: 05/05/19 Date of : 57 Report #: [id number] THIS REPORT FOR: //name// 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: [place] : [id number] Requested By: Ruth Prescott Order Number: [id number] MD: Chon Batista Measurements Intervals [place] Rate: 72 P: 68 OR: 150 QRS: 41 QRSD: 93 T: 240 QT: 397 QTc: 435 Interpretive Statements Sinus rhythm Repol abnrm, prob ischemia, anterolateral lds Baseline wander in lead(s) I,II,aVR,aVF Compared to ECG 03/31/2019 20:39:27 Early repolarization now present Prolonged QT interval no longer present Possible ischemia still present Electronically Signed On 05-05-2019 13:35:14 CDT by Chon Batista [email or web address] <ELECTRONICALLY SIGNED> By: Chon Batista MD, FACC 05/05/19 1335 0230 0230 Chon Batista MD, FAC /EPI
== END 2019-05-05 06:53 | disposition home or self-care (01) ==
LOC: M.ERS 02:21
PROVIDERS: Emergency Medicine
DX: R06.00 Dyspnea, unspecified (principal); N39.0 Urinary tract infection, site not specified; E11.65 Type 2 diabetes mellitus with hyperglycemia; I12.9 Hypertensive chronic kidney disease with stage 1 through stage 4 chronic kidney disease, or unspecified chronic kidney disease; N18.4 Chronic kidney disease, stage 4 (severe); E11.22 Type 2 diabetes mellitus with diabetic chronic kidney disease; I25.10 Atherosclerotic heart disease of native coronary artery without angina pectoris; I48.91 Unspecified atrial fibrillation; K21.9 Gastro-esophageal reflux disease without esophagitis; Z88.5 Allergy status to narcotic agent; Z88.0 Allergy status to penicillin

== ENCOUNTER 2021-03-04 21:15 | Inpatient (IN) | payer MEDICAID ==
[~2021-03-04] VITALS: Ht 157.5 cm; Wt 62.0 kg
[~2021-03-04 21:15] MED LIST changes: +KEFLEX500 M2 PO
[2021-03-04 21:16] VITALS: BP 125/103
[2021-03-04 21:43] LABS: BE -1.9 mmol/L (-2 to +3); pH 7.307 (7.340-7.450)
[2021-03-04 21:47] LABS: PCO2 50.5 mmHg (35.0-45.0); PO2 162.4 mmHg (75.0-100.0)
[2021-03-04 22:17] LABS: HEMOGLOBIN 10.5 gm/dL (12.0-15.0); MCH 28.2 pg (26.0-34.0); MCHC 31.7 g/dL (28.0-37.0); MCV 88.9 fL (80.0-100.0); NUCLEATED RBCS 0 /100WBC; PLATELET COUNT* 188 thou/uL (150-400); RBC 3.71 mil/uL (4.20-5.00); RDW-CV 15.9 % (10.5-14.5); WBC 6.8 thou/uL (4.0-11.0)
[2021-03-04 22:20] LABS: CALCIUM 8.6 mg/dL (8.5-10.1); CREATININE 1.9 mg/dL (0.6-1.3); POTASSIUM 4.9 mmol/L (3.5-5.1)
[2021-03-04 22:21] LABS: PROTIME 46.3 Seconds (9.20-11.50)
[2021-03-04 22:31] LABS: ALBUMIN 3.7 g/dL (3.4-5.0); MAGNESIUM 2.4 mg/dL (1.8-2.4); TOTAL BILIRUBIN 0.8 mg/dL (<0.1-1.0); TOTAL PROTEIN 7.3 g/dL (6.4-8.2)
[2021-03-04 22:32] LABS: INR 4.8
[2021-03-04 22:35] LABS: URINE BILIRUBIN NEGATIVE (Negative); URINE BLOOD NEGATIVE (Negative); URINE CLARITY CLEAR; URINE COLOR YELLOW; URINE GLUCOSE-RANDOM 1+ (Negative); URINE KETONES NEGATIVE (Negative); URINE LEUKOCYTES-REFLEX NEGATIVE (Negative); URINE PROTEIN NEGATIVE (Negative); URINE SPECIFIC GRAVITY 1.015 (1.005-1.030); URINE UROBILINOGEN 0.2 E.U./dl (0.2-1.0)
[2021-03-04 22:39] LABS: URINE NITRITE-REFLEX POSITIVE (Negative)
[2021-03-04 22:47] LABS: BACTERIA-REFLEX >30 Many /HPF (None Seen)
[2021-03-04 22:48] LABS: CASTS None Seen /LPF (None Seen); CRYSTALS None Seen /LPF (None Seen); MUCUS None Seen strn/LPF (None Seen); SQUAMOUS 0-3 Few /LPF (0-3); URINE RBC None Seen /HPF (0-2); URINE WBC-REFLEX 6-15 Few /HPF (0-5)
[2021-03-04 23:00] LABS: ABSOLUTE LYMPHOCYTES 0.3 thou/uL (0.8-5.3); ABSOLUTE MONOCYTES 0.3 thou/uL (0.0-1.2); ABSOLUTE NEUTROPHILS 6.1 thou/uL (1.6-8.1)
[2021-03-04 23:01] LABS: ANISOCYTOSIS Occasional; PLATELET ESTIMATE ADEQUATE
[2021-03-05 03:45] VITALS: BP 152/72
[2021-03-05 07:12] VITALS: BP 159/68
--- NOTE | 2021-03-05 09:48 | NUR ---
PT GIVEN CLEAR LIQUID DIET AT THIS TIME.
[2021-03-05 10:08] LABS: PROTIME 45.2 Seconds (9.20-11.50)
[2021-03-05 10:12] LABS: INR 4.7
--- NOTE | 2021-03-05 10:52 | EKG ---
[place] [address] ELECTROCARDIOGRAM REPORT Name: LITO STAPLES Room: [place] [address] ADM IN ..#: [id number] Admission: 03/05/21 Attend Phys: Murray Brizuela, Discharge: Date of : 57 Date of Service: 03/04/212120 Report #: [id number] THIS REPORT FOR: //name// [facility] ED Test Date: 2021-03-04 Test Time: 21:21:56 Pat Name: LITO STAPLES Department: Room: [facility] Gender: F 2[address] Pressman: [place] : 1955 Requested By: Ruth Prescott Order Number: [id number] MD: hSahid Bowie Measurements Intervals [place] Rate: 81 P: 67 MN: 147 QRS: 35 QRSD: 104 T: 104 QT: 419 QTc: 487 Interpretive Statements Sinus rhythm Artifact present Abnormal R-wave progression, early transition Repol abnrm suggests ischemia, lateral leads Minimal ST elevation, inferior leads Baseline wander in lead(s) III,aVF Compared to ECG 05/05/2019 02:30:22 Ventricular premature complex(es) now present ST (T wave) deviation now present Possible ischemia still present Electronically Signed On 03-05-2021 10:51:48 CDT by Shahid Bowie [email or web address] <ELECTRONICALLY SIGNED> By: Roxanne Bowie MD, [facility] 03/05/211050 20 20 Roxanne Bowie MD, [facility] /EPI
[2021-03-05 12:01] VITALS: BP 107/37
--- NOTE | 2021-03-05 13:55 | NUR ---
PT GIVEN LIQUID DIET LUNCH TRAY AT THIS TIME.
[2021-03-05 16:00] VITALS: BP 120/40
[2021-03-05 19:25] VITALS: BP 135/53
--- NOTE | 2021-03-05 20:09 | NUR ---
THIS NURSE WAS NOTIFIED BY LISANDRA TREVIZO THAT PT HAD A SYNCOPAL EPISODE. EKG DONE BY UBALDO TREVIZO. DR. PARRISH NOTIFIED. PT STATED THIS HAS HAPPENED TO HER BEFORE AND SHE SEES A CARDIO. VSS.
[2021-03-05 23:00] VITALS: BP 140/80
[2021-03-06 01:56] LABS: BE 2.4 mmol/L (-2 to +3)
[2021-03-06 01:58] LABS: pH 7.283 (7.340-7.450)
[2021-03-06 01:59] LABS: PCO2 65.8 mmHg (35.0-45.0)
[2021-03-06 03:21] VITALS: BP 105/48
[2021-03-06 03:46] LABS: HEMATOCRIT 33.7 % (37.0-47.0); HEMOGLOBIN 10.7 gm/dL (12.0-15.0); MCH 28.2 pg (26.0-34.0); MCHC 31.8 g/dL (28.0-37.0); MCV 88.6 fL (80.0-100.0); MPV 7.9 fl. (7.2-11.1); RBC 3.81 mil/uL (4.20-5.00); RDW-CV 15.9 % (10.5-14.5); WBC 6.8 thou/uL (4.0-11.0)
[2021-03-06 03:47] LABS: CALCIUM 8.9 mg/dL (8.5-10.1); CREATININE 2.2 mg/dL (0.6-1.3); POTASSIUM 4.1 mmol/L (3.5-5.1)
[2021-03-06 03:50] LABS: INR 3.3; PROTIME 32.9 Seconds (9.20-11.50)
[2021-03-06 06:06] LABS: GLYCOHEMOGLOBIN (HGB A1C) 7.8 % (4.8-5.6)
--- NOTE | 2021-03-06 10:52 | EKG ---
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: [place] : 1955 Requested By: Ruth Prescott Order Number: [id number] MD: Jesus Patel Measurements Intervals [place] Rate: 88 P: 62 MO: 138 QRS: 46 QRSD: 113 T: 94 QT: 392 QTc: 475 Interpretive Statements Sinus rhythm Ventricular premature complex Borderline intraventricular conduction delay Borderline low voltage, extremity leads Borderline repolarization abnormality Compared to ECG 03/04/2021 21:21:56 Ventricular premature complex(es) now present Electronically Signed On 03-06-2021 10:52:43 CDT by Jesus Patel [email or web address] <ELECTRONICALLY SIGNED> By: Jesus Patel MD, FACC 03/06/21 1052 57 57 Jesus Patel MD, FAC /EPI
[2021-03-06 11:30] VITALS: BP 107/55
--- NOTE | 2021-03-06 14:09 | 2DMMODE ---
[place] [address] 2 D/M-MODE ECHOCARDIOGRAM Name: LITO STAPLES Room: [place] [address] ADM IN [place]#: [id number] Admission: 03/05/21 Attend Phys: Murray Brizuela, Discharge: Date of : 57 Date of Service: 03/06/21 1408 Report #: [id number] THIS REPORT FOR: cc: Donald Mondragon MD, Naiomi MD Blick,Jesus Angela MD [facility] ~ APPROVED REPORT Study performed: 03/06/2021 11:25:40 EXAM: Comprehensive 2D, Doppler, and color-flow Echocardiogram Patient Location: In-Patient Room #: ER Status: routine BSA: 1.77 HR: 85 bpm BP: 105/48 mmHg Rhythm: NSR Other Information Study Quality: Good Indications Congestive Heart Failure CAD VSD 2D Dimensions IVSd: 14.66 (7-11mm) LVOT Diam: 20.03 (18-24mm) LVDd: 50.32 mm PWd: 12.31 (7-11mm) LVDs: 32.37 (25-40mm) Aortic Root: 25.43 mm Volumes Left Atrial Volume (Systole) LA ESV Index: 53.10 mL/m2 Aortic Valve AoV Peak Sang.: 2.68 m/s AO Peak Gr.: 28.66 mmHg LVOT Max P.59 mmHg AO Mean Gr.: 15.98 mmHg LVOT Mean P.91 mmHg LVOT Max V: 0.63 m/s AO V2 VTI: 55.66 cm LVOT Mean V: 0.45 m/[place] [address] 2 D/M-MODE ECHOCARDIOGRAM Name: LITO STAPLES Francisca Room: [address] IN ..#: [id number] Admission: 03/05/21 Attend Phys: Murray Brizuela, Discharge: Date of : 57 Date of Service: 03/06/21 1408 Report #: [id number] CHAIM (VTI): 0.71 cm2 LVOT V1 VTI: 12.62 cm Mitral Valve MV Decel. Time: 183.43 ms MV PHT: 53.19 ms MVA (PHT): 4.14 cm2 TDI Medial E' Sang.: 0.07 m/s Lateral E' Sang.: 0.09 m/s Left Ventricle The left ventricle is normal size. There is normal LV segmental wall motion. Mild concentric left ventricular hypertrophy. Left ventricular systolic function is normal. The left ventricular ejection fraction is within the normal range. LVEF is 55-60%. This study is not technically sufficient to allow evaluation of the LV diastolic function. Right Ventricle The right ventricle is normal size. The right ventricular systolic function is normal. Atria Left atrium is severely dilated. The right atrium size is normal. Aortic Valve Aortic valve is calcified. No aortic regurgitation is present. Mild aortic stenosis. Mitral Valve There is a mechanical mitral valve. There is no mitral valve regurgitation noted. No evidence of mitral valve stenosis. Tricuspid Valve The tricuspid valve is normal in structure. There is no tricuspid valve regurgitation noted. Pulmonic Valve The pulmonary valve is normal in structure. There is no pulmonic valvular regurgitation. Great Vessels The aortic root is normal in size. IVC is normal in size and collapses >50% [place] [address] 2 D/M-MODE ECHOCARDIOGRAM Name: LITO STAPLES Room: [address] IN M.R.#: [id number] Admission: 03/05/21 Attend Phys: Murray Brizuela, Discharge: Date of : 57 Date of Service: 03/06/21 1408 Report #: [id number] Pericardium There is no pericardial effusion. <Conclusion> Mild concentric left ventricular hypertrophy. LVEF is 55-60%. Left atrium is severely dilated. Mild aortic stenosis. There is a mechanical mitral valve. <ELECTRONICALLY SIGNED> By: Jesus Patel MD, [facility] 03/06/21 1408 140 140 Jesus Patel MD, FACC /INF
[2021-03-06 14:37] VITALS: BP 131/63
--- NOTE | 2021-03-06 14:43 | NUR ---
PT REPORTS SHE FEELS VERY HOT, IS SWEATING, LYING IN POSITION IN BED, STATES SHE IS CLOSTROPHOBIC AND IS REQUESTING A FAN. PT WAS GIVEN COLD WET RAG TO PLACE ON HER HEAD AND A FAN HAS BEEN ORDERED FROM [facility]. BLOOD GLUCOSE IS CURRENTLY 168. PT BEING REPOSITIONED IN BED FOR COMFORT. VSS.
--- NOTE | 2021-03-06 16:36 | NUR ---
CM COMPLETED ASSESSMENT WITH PT'S SPOUSE, PT IS ON COVID ISOLATION PRECAUTIONS. PT USES 2-4L OF O2 AT HOME AT NIGHT ONLY. DME PROVIDED THROUGH [facility]. PT HAS CANECHON, WC - PT MAINLY USES W/C D/T SHOULDER INJURY, ETC. PT HAD SLEEP STUDY APPT SCHEDULED FOR Sat FOR CPAP, HOWEVER, PT'S SPOUSE, DREW, STATED HE RESCHEDULED THE APPT. PT HAS HX AT [facility], BOTH, 5 Y/A. POC IS FOR PT TO BE DIURESED. CM TO CONT TO FOLLOW TO ASSSIT W/DC PLANNING.
[2021-03-06 17:25] VITALS: BP 121/67
[2021-03-06 18:37] VITALS: BP 124/59
[2021-03-06 20:00] VITALS: BP 125/59
[2021-03-06 22:30] LABS: BE 4.5 mmol/L (-2 to +3); PO2 74.5 mmHg (75.0-100.0); pH 7.337 (7.340-7.450)
[2021-03-06 22:32] LABS: PCO2 60.3 mmHg (35.0-45.0)
[2021-03-07] VITALS: BP 114/62
[2021-03-07 04:00] VITALS: BP 106/49
--- NOTE | 2021-03-07 05:03 | NUR ---
REPORT RECIEVED FROM DAY SHIFT RN. WHEN GOING TO DO ADMISSION ON PT, PT WAS UNAROUSABLE. VSS, BLOOD SUGAR CHECKED. ABG'S DONE. DR NOTIFED. PT DID BECOME MORE ALERT WHEN HER CALLED HER. PT MOVED TO NEGATIVE AIR FLOW ROOM AND BIPAP STARTED. PTS O2 INCREASED TO 10L NC WHEN OFF BIPAP. PT MORE ALERT THIS AM. ADMISSION DOCUMENTED. MEDS GIVEN PER E-MAR. IV PATENT. PAIN MEDS GIVEN PER E-MAR WITH RELIEF. FALL PRECAUTIONS IN PLACE. PT ABLE TO MAKE NEEDS KNOWN. WILL CONTINUE WITH PLAN OF CARE.
[2021-03-07 05:52] LABS: HEMATOCRIT 32.9 % (37.0-47.0); HEMOGLOBIN 10.5 gm/dL (12.0-15.0); MCH 28.3 pg (26.0-34.0); MCHC 31.8 g/dL (28.0-37.0); MCV 89.1 fL (80.0-100.0); MPV 7.9 fl. (7.2-11.1); RBC 3.69 mil/uL (4.20-5.00); RDW-CV 15.8 % (10.5-14.5); WBC 5.3 thou/uL (4.0-11.0)
[2021-03-07 05:59] LABS: INR 2.1; PROTIME 21.5 Seconds (9.20-11.50)
[2021-03-07 06:06] LABS: CALCIUM 8.6 mg/dL (8.5-10.1); CREATININE 2.4 mg/dL (0.6-1.3); POTASSIUM 3.9 mmol/L (3.5-5.1)
[2021-03-07 06:07] LABS: TROPONIN-I LEVEL 0.78 ng/mL (<0.06)
[2021-03-07 08:00] VITALS: BP 178/84
--- NOTE | 2021-03-07 11:11 | CON ---
[address] [address] CONSULTATION Name: LITO STAPLES Room: [address] IN M.R.#: [id number] Admission: 03/05/21 Attend Phys: Murray Brizuela MD Discharge: Date of : 57 Report #: [id number] THIS REPORT FOR: cc: Donald Mondragon MD, Naiomi MD Blick, David R. MD [facility] ~ DATE OF CONSULTATION: 03/06/2021 CARDIOLOGY CONSULTATION HISTORY OF PRESENT ILLNESS: The patient is a 65-year-old white female who I was asked to see in the hospital today after she complained of chest pain. The patient has an extensive and complicated past medical history. She has actually been here to [facility] in the past. She has a history of coronary stenting. She eventually underwent mitral valve replacement at [facility] in 2018 and coronary bypass surgery. She has had coronary stents placed since that time. She is not very active because of her large size and uses a walker. At the time of her bypass surgery she apparently had a sternal wound infection requiring wound VAC and debridement of her sternum. Recently, she has been short of breath and coughing. She ran a fever. She notes a sharp chest pain. She notes occasional irregular heartbeat. She has had no syncope. She came to the hospital 2 days ago and was diagnosed with COVID-19. She states she did receive the vaccine. She denies any chest pain relating to activity or meals. She has had no bleeding. The pain is not related to coughing. She denies any trauma to her chest. PAST MEDICAL HISTORY: She has had surgery on her ankle, cholecystectomy, diabetes, hypertension. MEDICATIONS ON ADMISSION: Consisted of Plavix, amiodarone, Protonix, digoxin, Neurontin, Lipitor, Januvia, Zoloft, warfarin, torsemide. ALLERGIES: SHE HAS PREVIOUS INTOLERANCE TO CODEINE AND PENICILLIN. FAMILY HISTORY: Positive for heart disease. SOCIAL HISTORY: She is . She and her live in [place]. She quit smoking 30 years ago. No alcohol abuse. REVIEW OF SYSTEMS: She is overweight being 5 feet 2 inches and 239 pounds. She has oxygen at home. No history of a stroke, liver disease, kidney disease, cancer, psychiatric illness, chronic skin condition. PHYSICAL EXAMINATION: GENERAL: Revealed an elderly obese female lying in bed[place] [address] CONSULTATION Name: LITO STAPLES Room: [address]#: [id number] Admission: 03/05/21 Attend Phys: Murray Brizuela MD Discharge: Date of : 57 Report #: [id number] acute distress. VITAL SIGNS: She had a blood pressure of 110/60, pulse is 70, she is afebrile. HEENT: She was anicteric. Conjunctivae pink. Mucous membrane moist. NECK: Neck veins not distended. No carotid bruits. CHEST: Clear to auscultation. HEART: Regular rhythm and rate. Metallic mitral opening and closing sound, grade 2 systolic ejection murmur. ABDOMEN: Obese. EXTREMITIES: Had no edema. Dorsalis pedis pulse could not be palpated. SKIN: Cool and dry. NEUROLOGIC: Nonfocal. LABORATORY DATA: Her ECG on admission showed a sinus rhythm, a PVC, nonspecific ST and T-wave changes. Her workup, she actually had an echocardiogram done in 2019 here at [facility] that showed ejection fraction of 60%, biatrial enlargement, mild aortic stenosis. The patient had lab work that included sodium 144, BUN 43, creatinine 2.2. Her troponin was elevated on admission at 1.67. Digoxin level has not been performed. Hemoglobin 10.7. Her COVID antigen stat test was positive. Her chest x-ray on admission showed cardiomegaly, mild vascular congestion, previous mitral valve replacement. IMPRESSION AND RECOMMENDATIONS: 1. Type 2 non-ST segment elevation myocardial infarction. Recommend a conservative approach. I would continue Plavix. 2. Previous mitral valve replacement. I will continue chronic anticoagulation. Currently, her INR is 3.3. I would aim for an INR of 2.5-3.5. Recommend echocardiogram. 3. Previous bypass surgery. Symptoms atypical for angina. 4. Obesity. 5. Diabetes. The patient is on oral medications. 6. History of atrial fibrillation. The patient is on amiodarone and digoxin. 7. Hyperlipidemia. The patient is on a statin drug. 8. History of asthma. <ELECTRONICALLY SIGNED> By: Jesus Patel MD, FACC 03/07/21 1111 [id number] Patel MD, FACC /nt
--- NOTE | 2021-03-07 11:29 | EKG ---
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 : 1955 Requested By: Jesus Patel Order Number: [id number] Reading MD: Jesus Patel Measurements Intervals Jackson Rate: 95 P: 66 TN: 141 QRS: 51 QRSD: 98 T: 175 QT: 343 QTc: 431 Interpretive Statements Sinus rhythm Atrial premature complex Low voltage, extremity leads Repol abnrm suggests ischemia, anterolateral Compared to ECG 03/05/2021 19:58:17 Atrial premature complex(es) now present Ventricular premature complex(es) no longer present Electronically Signed On 03-07-2021 11:29:30 CDT by Jesus Patel [email or web address] <ELECTRONICALLY SIGNED> By: Jesus Patel MD, [facility] 03/07/21 1129 1 1 Jesus Patel MD, [facility] /EPI
[2021-03-07 11:45] VITALS: BP 137/82
--- NOTE | 2021-03-07 15:07 | NUR ---
Covid positive. On 8L, continue to wean. Cardiology following. Ivabx. PT/OT evals ordered.
[2021-03-07 15:54] VITALS: BP 128/71; BP 129/79
--- NOTE | 2021-03-07 16:07 | NUR ---
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 ANXIOUS TODAY, REASSURANCE GIVEN. 02 ON 8L HF NC. UP IN CHAIR THIS AFTERNOON. INCONTINENT OF LARGE BM, LEXX CARE GIVEN BACK IN CHAIR. SOA, WEAKNESS NOTED. TALKING ON PHONE TO FAMILY MOST OF DAY. GIVEN TYLENOL IN AM FOR COMPLAINTS OF HEADACHE, REPORTING PARTIAL RELIEF WHEN REASSESSING PAIN CONTROL. TOLERATING DIET. CALL LIGHT WITHIN REACH. WILL CONTINUE TO MONITOR.
[2021-03-07 21:00] VITALS: BP 144/64
[2021-03-08 00:21] VITALS: BP 98/69
--- NOTE | 2021-03-08 03:52 | NUR ---
PT SLEPT MOST OF SHIFT. ASSESSMENT DOCUMENTED. MEDS GIVEN PER E-SEP. IV PATENT. PAIN MEDS GIVEN PER E-SEP. PT ON BIPAP MOST OF SHIFT, TOLERATING WELL. FALL PRECAUTIONS IN PLACE. PT ABLE TO MAKE NEEDS KNOWN. WILL CONTINUE WITH PLAN OF CARE.
[2021-03-08 04:30] VITALS: BP 122/49
[2021-03-08 06:05] LABS: HEMATOCRIT 30.1 % (37.0-47.0); HEMOGLOBIN 9.6 gm/dL (12.0-15.0); MCH 27.9 pg (26.0-34.0); MCHC 31.7 g/dL (28.0-37.0); MPV 7.7 fl. (7.2-11.1); RBC 3.43 mil/uL (4.20-5.00); RDW-CV 15.8 % (10.5-14.5)
[2021-03-08 06:19] LABS: CALCIUM 8.4 mg/dL (8.5-10.1); CREATININE 2.4 mg/dL (0.6-1.3); POTASSIUM 3.8 mmol/L (3.5-5.1)
[2021-03-08 06:26] LABS: CREATININE 2.4 mg/dL (0.6-1.3); MAGNESIUM 2.3 mg/dL (1.8-2.4); PHOSPHORUS* 3.6 mg/dL (2.5-4.9); POTASSIUM 3.9 mmol/L (3.5-5.1)
[2021-03-08 08:50] VITALS: BP 132/46
[2021-03-08 12:20] VITALS: BP 116/56
--- NOTE | 2021-03-08 12:59 | NUR ---
Anticipate dc in a few days.Covid positive. Bipap 40% fio2. Therapies to continue to see.
[2021-03-08 16:20] VITALS: BP 121/67
--- NOTE | 2021-03-08 19:07 | NUR ---
PATIENT RESTING UP IN CHAIR. PATIENT IS UP WITH ASSIST. PATIENT HAS O2 ON AT 10L/NC. PATIENT IS SHORT OF AIR WITH EXERTION. PATIENT HAS BIPAP AT NIGHT. PATIENT HAS HAD COMPLAINTS OF HEADACHE, TREATED WITH HYDROCODONE. PATIENT DENIES ANY NEEDS AT THIS TIME. CALL LIGHT WITHIN REACH.
[2021-03-08 20:34] VITALS: BP 141/55
[2021-03-09 01:16] VITALS: BP 120/100
[2021-03-09 05:04] VITALS: BP 128/53
[2021-03-09 05:20] LABS: CALCIUM 8.1 mg/dL (8.5-10.1); CREATININE 2.2 mg/dL (0.6-1.3); POTASSIUM 3.9 mmol/L (3.5-5.1)
[2021-03-09 05:27] LABS: INR 1.7; PROTIME 17.4 Seconds (9.20-11.50)
[2021-03-09 08:00] VITALS: BP 131/90
[2021-03-09 12:00] VITALS: BP 92/58
[2021-03-09 12:49] LABS: BE 7.1 mmol/L (-2 to +3); pH 7.424 (7.340-7.450)
[2021-03-09 12:52] LABS: PO2 58.1 mmHg (75.0-100.0)
--- NOTE | 2021-03-09 14:52 | NUR ---
Anticipate dc in a few days. Covid positive
[2021-03-09 16:00] VITALS: BP 112/50; BP 93/36
[2021-03-09 20:35] VITALS: BP 120/69
[2021-03-10 00:11] VITALS: BP 102/60
[2021-03-10 04:20] VITALS: BP 147/52
[2021-03-10 08:00] VITALS: BP 148/53
--- NOTE | 2021-03-10 10:06 | CON ---
[address] [address] CONSULTATION Name: LITO STAPLES Room: [address] IN M.R.#: [id number] Admission: 03/05/21 Attend Phys: Murray Brizuela MD Discharge: Date of : 57 Report #: [id number] THIS REPORT FOR: cc: Donald Mondragon MD, Naiomi MD Khan, Abid R. MD ~ DATE OF CONSULTATION: 03/06/2021 NEPHROLOGY CONSULTATION REFERRING PHYSICIAN: Murray Brizuela MD. REASON FOR CONSULTATION: Elevated creatinine. HISTORY OF PRESENT ILLNESS: A 65-year-old female who comes in with shortness of breath. Chest x-ray showing pulmonary edema. She believes she has some underlying kidney problems and was to see an outpatient physiotherapist's assistant at [facility], but has not yet seen a kidney doctor. She has been vaccinated for COVID-19 and currently testing is pending. She has received some IV Lasix. Her urine also appears to be infected. She appears to be comfortable at present time and does not have any specific complaints other than mentioned above. REVIEW OF SYSTEMS: Constitutional, psych, heme, eyes, ENT, respiratory, cardiac, GI, , endocrine, all negative except as documented above. PAST MEDICAL HISTORY: History of CHF, hypertension, diabetes, coronary artery disease with stents, history of mitral valve replacement, history of coronary artery disease with a bypass surgery in the past. FAMILY HISTORY: Nonpertinent for this 65-year-old female. SOCIAL HISTORY: Previous history of tobacco. CURRENT MEDICATIONS: Reviewed. PHYSICAL EXAMINATION: VITAL SIGNS: Blood pressure 131/63, pulse 89, respirations 21, temperature 37.2. No acute distress. HEENT: Eyes are open. Ears externally normal. NECK: Supple. CARDIOVASCULAR: Regular rate. LUNGS: Diminished. ABDOMEN: Soft. MUSCULOSKELETAL: Nontender. EXTREMITIES: [place] [address] CONSULTATION Name: LITO STAPLES Francisca Room: [address] IN [facility]#: [id number] Admission: 03/05/21 Attend Phys: Murray Brizuela MD Discharge: Date of : 57 Report #: [id number] PSYCHIATRIC: Awake, alert. LABORATORY DATA: White cell count 6.8, hemoglobin 10.7, platelets 218. Sodium 144, potassium 4.1, chloride 104, bicarbonate 30, BUN 43, creatinine 2.2, glucose 107, calcium 8.9. UA noted. ASSESSMENT AND PLAN: 1. Chronic kidney disease stage 4. Baseline creatinine appears to be around 1.9-2.2 going back to 2019. UA is noted. 2. Urinary tract infection. 3. Pulmonary edema with a history of congestive heart failure. 4. Coronary artery disease with a history of coronary artery bypass grafting. 5. Respiratory acidosis. 6. History of mitral valve replacement. 7. Diabetes. PLAN: Renal function is at present, stable. Agree with IV Lasix. Check a renal ultrasound. Cardiology has been consulted. Check labs again in the a.m. COVID-19 testing has come back positive and the patient has been followed and managed by internal medicine. Echo has come back and shows an EF of 55-60%, mild aortic stenosis. Cardiology has also evaluated the patient now and is managing a conservative approach for a non-ST elevation VT. Continue amiodarone and digoxin for AFib. We will follow along with you. Thank you for requesting my opinion in the care and management of this patient. <ELECTRONICALLY SIGNED> By: Janes Mcclelland MD 03/10/21 1006 [id number] [id number] Mcclelland MD /nt
[2021-03-10 12:00] VITALS: BP 155/56
--- NOTE | 2021-03-10 13:37 | NUR ---
Anticipate dc in a few days. Cards and nephro following. Remains on bipap 40% fio2.
[2021-03-10 16:00] VITALS: BP 136/86
[2021-03-10 20:00] VITALS: BP 129/46
[2021-03-11 00:10] VITALS: BP 162/54
[2021-03-11 04:39] VITALS: BP 144/79
[2021-03-11 04:40] LABS: INR 1.9; PROTIME 19.6 Seconds (9.20-11.50)
--- NOTE | 2021-03-11 05:15 | NUR ---
ASSUMED PT CARE AT APPROX 1930. PT IS AWAKE AND ORIENTED X4. PT IS TRACING SR ON THE TOPLINE BEADING MACHINE TENDER WITH OCCASSIONAL PACs/PVCs. NO DESATURATIONS NOTED ON 8L OF O2/HFNC,SHORT OF AIR WITH ACTIVITES. PT DENIES PAIN THIS SHIFT. NO ACUTE CHANGES. CALL LIGHT WITHIN REACH. FALL PRECAUTIONS IN PLACE. HOURLY ROUNDING DONE FOR PT SAFETY.
[2021-03-11 08:00] VITALS: BP 152/55
[2021-03-11 12:09] VITALS: BP 116/46
[2021-03-11 16:34] VITALS: BP 140/59
[2021-03-11 20:00] VITALS: BP 143/45
--- NOTE | 2021-03-11 22:14 | NUR ---
PT REFUSING TO WEAR BIPAP AT [facility]. ENCOUARGED HER TO WEAR. PT REFUSING.
[2021-03-12 00:24] VITALS: BP 137/53
[2021-03-12 04:00] VITALS: BP 159/77
--- NOTE | 2021-03-12 04:26 | NUR ---
ASSUMED PT CARE AT APPROX 1930. PT IS AWAKE AND ORIENTED X4. PT IS TRACING SR ON THE JAVA ANDROID DEVELOPER WITH OCCASSIONAL PACs. NO DESATURATIONS NOTED ON 4L OF O2/HFNC,SHORT OF AIR WITH ACTIVITES. PAIN MEDS GIVEN PER MAR W/ RELIEF. NO ACUTE CHANGES THIS SHIFT. CALL LIGHT WITHIN REACH. FALL PRECAUTIONS IN PLACE. HOURLY ROUNDING DONE FOR PT SAFETY.
[2021-03-12 08:45] VITALS: BP 105/52
[2021-03-12 12:00] VITALS: BP 112/69
[2021-03-12 16:00] VITALS: BP 136/52
[2021-03-12 20:00] VITALS: BP 150/54
[2021-03-13 04:00] VITALS: BP 149/67
--- NOTE | 2021-03-13 05:43 | NUR ---
ASSUMED PT CARE AT APPROX 1930. PT IS AWAKE AND ORIENTED X4. PT IS TRACING SR ON THE CREEL SELECTOR WITH OCCASSIONAL PACs. PT IS SHORT OF AIR,DESATURATES TO THE UPPER 80's WITH ACTIVITIES. PAIN MEDS GIVEN PER MAR W/ RELIEF. NO ACUTE CHANGES THIS SHIFT. CALL LIGHT WITHIN REACH. FALL PRECAUTIONS IN PLACE.
[2021-03-13 08:21] VITALS: BP 173/64
[2021-03-13] MEDS ORDERED: VENTOLIN HFA 1818 GM INH (09:08)
[2021-03-13] MEDS ORDERED: CEFDINIR300 MG PO (09:08)
[2021-03-13] MEDS ORDERED: NEURONTIN600 MG PO (09:08)
[2021-03-13] MEDS ORDERED: CARVEDILOL3.125 MG PO (09:08)
[2021-03-13 12:04] VITALS: BP 127/50
[2021-03-13] MEDS ORDERED: PREDNISONE 10 M10 MG PO (12:07)
--- NOTE | 2021-03-13 12:33 | NUR ---
Ex ox completed, Pt back to baseline o2. Updated , to bring tank. Anticipate dc today.
[2021-03-13 15:09] VITALS: BP 127/50
[2021-03-13 15:14] VITALS: BP 127/50
--- NOTE | 2021-03-13 17:07 | NUR ---
Reviewed dc teaching with patient and ( on phone); verbalized understanding. IV and ekg monitor tech dc'd. Discharged from unit per WC.
== END 2021-03-13 17:07 | disposition home or self-care (01) | DRG 177 ==
LOC: M.ERS 21:15 → M.TBA-ER 03-05 00:29 → M.ORTHSURG 03-06 18:25
PROVIDERS: Emergency Medicine; Family Medicine; Internal Medicine; Internal Medicine Cardiovascular Disease; Internal Medicine Nephrology; ADMIT Internal Medicine; ATTEND Internal Medicine
DX: U07.1 COVID-19 (principal); I50.43 Acute on chronic combined systolic (congestive) and diastolic (congestive) heart failure; J96.01 Acute respiratory failure with hypoxia; I21.A1 Myocardial infarction type 2; N17.9 Acute kidney failure, unspecified; I13.0 Hypertensive heart and chronic kidney disease with heart failure and stage 1 through stage 4 chronic kidney disease, or unspecified chronic kidney disease; N30.01 Acute cystitis with hematuria; N18.4 Chronic kidney disease, stage 4 (severe); E78.5 Hyperlipidemia, unspecified; E11.22 Type 2 diabetes mellitus with diabetic chronic kidney disease; B96.1 Klebsiella pneumoniae [K. pneumoniae] as the cause of diseases classified elsewhere; E66.01 Morbid (severe) obesity due to excess calories; G89.29 Other chronic pain; F32.9 Major depressive disorder, single episode, unspecified; I35.0 Nonrheumatic aortic (valve) stenosis; I25.10 Atherosclerotic heart disease of native coronary artery without angina pectoris; I48.91 Unspecified atrial fibrillation; J45.909 Unspecified asthma, uncomplicated; K21.9 Gastro-esophageal reflux disease without esophagitis; Z95.5 Presence of coronary angioplasty implant and graft; Z95.1 Presence of aortocoronary bypass graft; Z90.49 Acquired absence of other specified parts of digestive tract; Z79.01 Long term (current) use of anticoagulants; Z68.25 Body mass index [BMI] 25.0-25.9, adult; Z95.4 Presence of other heart-valve replacement; Z79.899 Other long term (current) drug therapy; Z79.4 Long term (current) use of insulin; Z88.5 Allergy status to narcotic agent; Z88.8 Allergy status to other drugs, medicaments and biological substances; Z88.0 Allergy status to penicillin